=== PATIENT | female | born 1950 | race Caucasian/White ===

== ENCOUNTER 2016-05-02 06:10 | Day surgery (SDC) | payer OTHER ==
[2016-05-01 14:08] LABS: BASOPHILS 0.1 %; BASOPHILS ABSOLUTE 0.01 10/3/uL (0.0-0.16); EOSINOPHILS 3.9 %; EOSINOPHILS ABSOLUTE 0.26 10/3/uL (0.0-0.53); HEMATOCRIT 37.5 % (36.0-48.0); HEMOGLOBIN 12.8 g/dL (12.0-16.0); IMMATURE GRANULOCYTES 0.3 %; IMMATURE GRANULOCYTES ABSOLUTE 0.02 10/3/uL (0.0-0.11); LYMPHOCYTES 21.9 %; LYMPHOCYTES ABSOLUTE 1.46 10/3/uL (0.67-4.30); MANUAL DIFF NO %; MEAN CORPUS HGB CONC 34.1 g/dL (32.0-36.0); MEAN CORPUSCULAR HEMOGLOB 30.8 pg (26.0-34.0); MEAN CORPUSCULAR VOLUME 90.4 fL (80-100); MEAN PLATELET VOLUME 10.1 fL (9.2-13.0); MONOCYTES 6.9 %; MONOCYTES ABSOLUTE 0.46 10/3/uL (0.21-1.20); NEUTROPHILS 66.9 %; NEUTROPHILS ABSOLUTE 4.46 10/3/uL (2.02-8.40); PLATELET COUNT 266 10/3/uL (150-400); RBC DISTRIBUTION WIDTH 13.4 % (12.0-16.0); RED CELL COUNT 4.15 10/6/uL (4.0-5.6); WHITE BLOOD CELLS 6.7 10/3/uL (4.5-10.5)
[2016-05-01 14:16] LABS: CALCIUM, SERUM 8.5 MG/DL (8.5-10.4); CHLORIDE, SERUM 106 MMOL/L (96-112); CO2 (CARBON DIOXIDE) 26 MMOL/L (24-34); CREATININE 1.02 MG/DL (0.55-1.02); GFR AFRICAN AMERICAN 65 ML/MIN (>=60); GFR NON AFRICAN AMERICAN 56 ML/MIN (>=60); GLUCOSE, SERUM 85 MG/DL (60-99); POTASSIUM, SERUM 3.4 MMOL/L (3.5-5.3); SODIUM, SERUM 143 MMOL/L (135-148)
[2016-05-01 14:17] LABS: BUN (BLOOD UREA NITROGEN) 18 MG/DL (6-23)
--- NOTE | ~2016-05-02 | OP ---
Record Of Operation [facility] [address] [place]. [address] NAME: JEREMIE ARANA : 46 STATUS : [facility] PAT#: [id number] AGE: 66 ADM/REG DATE : 05/02/16 MR#: [id number] REPORT SERV DATE: 05/02/16 DICTATED BY: RANDOLPH SILVERIO DATE: 05/02/16 REPORT STATUS : Draft TRANSCRIBED BY: MODL DATE: 05/02/16 DATE OF PROCEDURE: 05/02/2016 SERVICE: Otolaryngology. PREOPERATIVE DIAGNOSIS: Persistent and progressive the right cervical lymphadenopathy. POSTOPERATIVE DIAGNOSIS: Persistent and progressive the right cervical lymphadenopathy. PROCEDURE: Excision of the deep cervical lymph nodes on the right. SURGEON: Randolph Silverio MD. RIB CLOTH KNITTER: Tari Gaviria. ANESTHESIA: Monitored anesthesia care. ESTIMATED BLOOD LOSS: 5 mL. COMPLICATIONS: None. SPECIMENS: Multiple deep right cervical lymph nodes from level 5. STATEMENT OF MEDICAL NECESSITY: This is a 66-year-old female, known to me for previous excisional biopsy of a supraclavicular lymph node. Final diagnosis, fibrosing lymphadenitis. The patient has since had progressive disease causing quite a bit of tenderness and pain and cosmetic deformity. In order to facilitate, getting an alternative diagnosis, and more definitive diagnosis, I recommended excisional biopsy. Also hoping for some therapeutic relief from the tenderness. STATEMENT OF OPERATION: The patient was brought to the operating room in supine position, transferred over to the operating room table. All pressure points were padded. General mask inhalation anesthesia was established. The patient was placed on a shoulder roll with her head turned slightly to the left. Surgical incision was marked out in a relaxed skin tension line overlying the lymph nodes. The patient was prepped and draped in the usual fashion. A total of 8 mL were injected. I made the incision through the platysma with a #15 blade. I found the posterior border of the sternocleidomastoid and retracted it anteriorly. Once under the sternocleidomastoid, the lymph nodes were tightly adherent to the surrounding tissue and to each other. I removed a conglomerate of about four to five separate lymph nodes dissecting them carefully and maintaining hemostasis with the bipolar cautery. Once the lymph nodes were removed, they were passed off for fresh analysis. The pathologist in the room received and took them. He is going to perform flow cytometry analysis and histopathologic analysis. The wound was irrigated thoroughly with warm saline. Fibrillar gauze was placed into the deep portion of the wound bed. The posterior border of the sternocleidomastoid was closed with two interrupted 3-0 Vicryl sutures. The skin was closed in two layers, first closing the deep dermal layer with buried 4-0 Vicryl sutures, Record Of Operation [address] [place]. [address] NAME: JEREMIE ARANA : 46 STATUS : REG [facility] PAT#: [id number] AGE: 66 ADM/REG DATE : 05/02/16 MR#: [id number] REPORT SERV DATE: 05/02/16 DICTATED BY: RANDOLPH SILVERIO DATE: 05/02/16 REPORT STATUS : Draft TRANSCRIBED BY: ELLYN DATE: 05/02/16 and then the skin with Dermabond. This completed the case. The patient was turned over to Anesthesia, where she was then transferred to the PACU in stable condition. PS/RAJL Randolph Silverio MD / [id number] CC: MD Nickolas Russell M.D.
[~2016-05-02 06:10] MED LIST: ASAB PO; CALTRA600D PO; CYANO1000T PO; FERROUS SULF325 M1 PO; IRON IV; LEXAPRO10 PO; METHOC500B PO; MOBIC7.5 PO; MTX2.5 PO; PLAQ200B PO; PRILO PO; SEROQUEL50 MG PO; SUPPLEMENT PO; ULTRAM50 PO; ZOL100 PO; ZOL50 PO; ZYP5 PO; [UNRECOGNIZED DRUG - OTHER] PO
== END 2016-05-02 11:51 | disposition home or self-care (01) ==
LOC: SDC 06:10
PROVIDERS: Otolaryngology
PROC: 07B10ZX Excision of Right Neck Lymphatic, Open Approach, Diagnostic (ICD-10-PCS; principal; 2016-05-02 07:15)
DX: L04.0 Acute lymphadenitis of face, head and neck (principal); I88.1 Chronic lymphadenitis, except mesenteric; F31.9 Bipolar disorder, unspecified; F32.9 Major depressive disorder, single episode, unspecified; Z79.52 Long term (current) use of systemic steroids; Z79.899 Other long term (current) drug therapy; Z98.890 Other specified postprocedural states; Z98.41 Cataract extraction status, right eye; Z98.42 Cataract extraction status, left eye
CPT/HCPCS: 36415; 80048; 85025; 88184; 88185; 88305; 88312; 88333; 88342; 88346; 93005; A9270-GY; J0690; J2250; J3010

== ENCOUNTER 2016-08-23 06:39 | Day surgery (SDC) | payer OTHER ==
[2016-08-21 18:11] LABS: BASOPHILS 0.4 %; BASOPHILS ABSOLUTE 0.03 10/3/uL (0.0-0.16); EOSINOPHILS 3.2 %; EOSINOPHILS ABSOLUTE 0.25 10/3/uL (0.0-0.53); HEMATOCRIT 38.8 % (36.0-48.0); HEMOGLOBIN 12.8 g/dL (12.0-16.0); IMMATURE GRANULOCYTES 0.1 %; IMMATURE GRANULOCYTES ABSOLUTE 0.01 10/3/uL (0.0-0.11); LYMPHOCYTES 27.6 %; LYMPHOCYTES ABSOLUTE 2.17 10/3/uL (0.67-4.30); MEAN CORPUSCULAR HEMOGLOB 30.3 pg (26.0-34.0); MEAN CORPUSCULAR VOLUME 91.9 fL (80-100); MONOCYTES 6.2 %; MONOCYTES ABSOLUTE 0.49 10/3/uL (0.21-1.20); NEUTROPHILS 62.5 %; PLATELET COUNT 261 10/3/uL (150-400); RBC DISTRIBUTION WIDTH 13.5 % (12.0-16.0); RED CELL COUNT 4.22 10/6/uL (4.0-5.6); WHITE BLOOD CELLS 7.9 10/3/uL (4.5-10.5)
[2016-08-21 18:12] LABS: MANUAL DIFF NO %
[2016-08-21 18:13] LABS: BUN (BLOOD UREA NITROGEN) 21 MG/DL (6-23); CHLORIDE, SERUM 106 MMOL/L (96-112); CO2 (CARBON DIOXIDE) 27 MMOL/L (24-34); CREATININE 1.16 MG/DL (0.55-1.02); GFR AFRICAN AMERICAN 56 ML/MIN (>=60); GFR NON AFRICAN AMERICAN 48 ML/MIN (>=60); GLUCOSE, SERUM 105 MG/DL (60-99); POTASSIUM, SERUM 4.6 MMOL/L (3.5-5.3); SODIUM, SERUM 141 MMOL/L (135-148)
--- NOTE | ~2016-08-23 | OP ---
Record Of Operation [facility] [address] [place]. [address] NAME: JEREMIE ARANA : 46 STATUS : [facility]#: [id number] AGE: 66 ADM/REG DATE : 08/23/16 MR#: [id number] REPORT SERV DATE: 08/23/16 DICTATED BY: RANDOLPH SILVERIO DATE: 08/23/16 REPORT STATUS : Draft TRANSCRIBED BY: MODBiju DATE: 08/23/16 DATE OF PROCEDURE: 08/23/2016 SERVICE: Otolaryngology. PREOPERATIVE DIAGNOSIS: Persistent right-sided cervical lymphadenopathy. POSTOPERATIVE DIAGNOSIS: Persistent right-sided cervical lymphadenopathy. PROCEDURE: Excision of deep right supraclavicular cervical lymphadenopathy. ANESTHESIA: Laryngeal mask airway anesthesia. COMPLICATIONS: None. SPECIMENS: Multiple deep matted lymph nodes were removed from the right supraclavicular fossa. They were sent to microbiology for culture. They were given to pathology for fresh and permanent analysis as per the request of Dr. Stanley Victor, the referring physician. STATEMENT OF OPERATION: The patient was brought to the operating room in supine position, transferred to the operating table. After all pressure points were padded and general laryngeal mask airway anesthesia was established, a shoulder roll was placed for slight extension of the neck. The previous excision was cleaned with alcohol and injected with 1% lidocaine with epinephrine totaling 4 mL. She was then prepped and draped in the usual fashion. This incision was then remade with a 15 blade down through the dermis, then skin retractors were placed in and dissection through the subcutaneous fat was performed. The patient had several, approximately 10, thickly matted lymph nodes present. I dissected out the first cluster which had approximately 4. I cut one-half off, sent it for microbiology in a sterile cup and the other I sent to Dr. Mikal Kothari who came into the room. I removed another set of what appeared to be two matted nodes as well. There were more deep deeper nodes. I felt their proximity to the subclavian vein and superior lobe of the lung placed risk for injury to one or both of those, so I elected not to proceed any further. The wound was then again irrigated out thoroughly with warm saline. Fibrillar gauze was placed in the incision, it was then closed with 4-0 Vicryl deep dermal sutures and Dermabond skin glue. This concluded the case. The patient was turned back over to Anesthesia, where she awoke, was extubated, and transferred to the PACU in stable condition. PS/MODL Randolph Silverio MD / [id number] Record Of [address] [address] NAME: JEREMIE ARANA : 46 STATUS : [facility] PAT#: [id number] AGE: 66 ADM/REG DATE : 08/23/16 MR#: [id number] REPORT SERV DATE: 08/23/16 DICTATED BY: RANDOLPH SILVERIO DATE: 08/23/16 REPORT STATUS : Draft TRANSCRIBED BY: MODL DATE: 08/23/16 CC: MD Nickolas Russell M.D.
== END 2016-08-23 12:43 | disposition home or self-care (01) ==
LOC: SDC 06:39
PROVIDERS: Otolaryngology
PROC: 07B10ZX Excision of Right Neck Lymphatic, Open Approach, Diagnostic (ICD-10-PCS; principal; 2016-08-23 08:30)
DX: I88.1 Chronic lymphadenitis, except mesenteric (principal); D72.822 Plasmacytosis; M06.9 Rheumatoid arthritis, unspecified; F32.9 Major depressive disorder, single episode, unspecified; K21.9 Gastro-esophageal reflux disease without esophagitis; D64.9 Anemia, unspecified; Z90.710 Acquired absence of both cervix and uterus; Z90.89 Acquired absence of other organs; Z85.3 Personal history of malignant neoplasm of breast; Z98.890 Other specified postprocedural states; Z98.41 Cataract extraction status, right eye; Z98.42 Cataract extraction status, left eye; Z96.1 Presence of intraocular lens
CPT/HCPCS: 36415; 80048; 85025; 87015; 87070; 87075; 87077; 87102; 87116; 87186; 87205; 88307; 88331; 88341; 88342; 88346; 93005; J0690; J2250; J2405; J3010